=== PATIENT | female | born 1975 | race Caucasian/White ===

== ENCOUNTER → 2019-08-25 | Day surgery (SDC) | payer BC ==
[~2019-08-25] MED LIST: DEXTROSE 5% 250ML 250 ML IV ONE; FENTANYL CITRATE/PF 100MCG/2 ML INJ ONE; INSULIN REGULAR, HUMAN 100 UNIT/1 ML 3ML VIAL ONE; LANTUS 3ML100 UNITS/ SC; MIDAZOLAM HCL 2 MG/2 ML VIAL ONE; NOVALOG SC; PRILOSEC OTC20 MG PO; PROPOFOL IV EMULSION 10 MG/ML 50 ML VIAL ONE
--- OUTSIDE RECORDS SUMMARY | 2019-08-25 06:13 | XMS REPORT ---
Author Author [facility] Address Unknown Phone Unavailable Care Team Providers Care Tower Helper Name Role Phone Unavailable Unavailable Payers Payer Name Policy Type Policy Number Effective Date Expiration Date Problems This patient has no known problems. Allergies, Adverse Reactions, Alerts Allergy Name Allergy Type Status Severity Reaction(s) Onset Date Inactive Date Treating Clinician Comments morphine DA Active SV 2019-07-06 00:00:00 No Known Contrast Allergies DA Active U 2007-03-29 00:00:00 No Known Drug Allergies DA Active U 2007-03-29 00:00:00 No Known Food Allergies DA Active U 2007-03-29 00:00:00 No Known Other Allergies DA Active U 2007-03-29 00:00:00 Medications This patient has no known medications. Results Test Description Test Time Test Comments Text Results Atomic Results Result Comments GLUBED 2019-07-08 08:26:00 GLUBED (test code=GLUBED) 215 mg/dL 74-106 Performed by certified vacuum drier operator at [facility] [id number] 06:58:00* Test Item Value Reference Range Comments GLUBED (test code=GLUBED) 289 mg/dL 74-106 Performed by certified vacuum drier operator at [facility] BASIC METABOLIC [id number] 19:21:00* Test Item Value Reference Range Comments SODIUM (test code=NA) 139 mmol/L 136-145 POTASSIUM (test code=K) 4.4 mmol/L 3.5-5.1 CHLORIDE (test code=CL) 104.0 mmol/L 98-107 CARBON DIOXIDE (test code=CO2) 26.0 mmol/L 21-32 ANION GAP (test code=GAP) 13.4 10-20 GLUCOSE (test code=GLU) 290 mg/dL 74-106 BLOOD UREA NITROGEN (test code=BUN) 21 mg/dL 7-18 GLOMERULAR FILTRATION RATE (test code=GFR) > 60 mL/min >=60 Estimated GFR by using Modified MDRD formula.Chronic kidney disease is defined as either kidney damageor GFR <60 mL/min/1.73 m2 for >3 months. CREATININE (test code=CREAT) 0.80 mg/dL 0.55-1.02 Note change in reference range due to change in reagent. BUN/CREATININE RATIO (test code=BUN/CREA) 26.3 10-20 CALCIUM (test code=CA) 8.7 mg/dL 8.5-10.1
--- NOTE | 2019-08-25 07:10 | NUR ---
SPIRITUAL CARE - Pre-Surgery Assessment: Pt in bed. Pt's at bedside. Pt reported supportive attention from family, hoahaoism and friends. Intervention: I provided pastoral presence, hospitality, and sympathetic listening. I acquainted pt with availability of draftsperson while hospitalized. Outcome: Pt expressed appreciation for visit. No need for follow up indicated at this time. KAREN [facility] Spiritual Care Department O: [phone] Pager: [phone] ([phone] number calling from)
[2019-08-25 09:28] VITALS: BP 99/75
--- NOTE | 2019-08-25 15:39 | Operative Report ---
DATE OF PROCEDURE: 08/25/2019 SURGEON: Asaf Scott MD PROCEDURE: EGD with biopsies. INDICATION FOR PROCEDURE: Upper abdominal pain, nausea, and vomiting. MEDICATIONS: The patient was done under MAC, please see anesthesiologist's note. PROCEDURE IN DETAIL: With the patient in the left lateral decubitus position, a flexible fiberoptic Olympus gastroscope was introduced into the esophagus under direct visualization without any difficulty. There were some patchy erythema noted in distal esophagus. The scope was then advanced with ease into the stomach. Mucosa overlying the antrum and the body revealed some patchy intense erythema and moderate edema, and biopsies were obtained and sent to stain for H. pylori. Several hyperplastic-appearing polyps were noted in the body of the stomach and some were partially excised with the cold biopsy forceps. The pylorus was of normal contour and shape. It was intubated with ease and the scope was advanced all the way to the second portion of the duodenum. The scope was then withdrawn slowly. Mucosa overlying the proximal second portion and duodenal bulb grossly appeared to be within normal limits. Biopsies were obtained to rule out sprue. The scope was then withdrawn back into the stomach and retroflexed, and mucosa overlying the fundus and the cardia appeared to be within normal limits. The scope was then straightened out, it was subsequently withdrawn, and the patient tolerated the procedure well. IMPRESSION: 1. Distal esophagitis, mild. 2. Gastritis, biopsied, biopsies sent to stain for Helicobacter pylori. 3. Gastric polyps, body, hyperplastic-appearing, some partially excised with the cold biopsy forceps. 4. Rule out sprue. PLAN: Follow up histology. Increase omeprazole 40 mg 1 p.o. before meals b.i.d. Asaf Scott MD [facility] [place] /[id number] cc: Tommy Ryan MD
== END | disposition home or self-care (01) ==
LOC: OR 06:01
PROVIDERS: ATTEND Internal Medicine Gastroenterology
DX: K29.50 Unspecified chronic gastritis without bleeding (principal); K31.7 Polyp of stomach and duodenum; K20.9 Esophagitis, unspecified; E11.9 Type 2 diabetes mellitus without complications; Z88.6 Allergy status to analgesic agent; Z79.4 Long term (current) use of insulin
CPT/HCPCS: 36415; 43239; 81025; 82948; J2250; J2704; J3010; J7070; J1817